=== PATIENT | male | born 1970 | race Two or more races ===

== ENCOUNTER 2024-01-22 23:54 | Emergency (ER) | payer MEDICAID, SELFPAY ==
[2024-01-22 23:55] VITALS: BP 136/82; PULSE 84; RESP 15; TEMP 37.1; O2SAT 99
[2024-01-23] VITALS: BMI 23.3
--- NOTE | 2024-01-23 | EDNOTE_ITS ---
ED General RME/HPI General Chief complaint: General Adult/Misc Complain Stated complaint: PULLED OUT NEPHROSTOMY TUBE Time Seen by Provider: 01/22/24 23:59 Arrival date/time: 01/22/24 23:54 Limitations: no limitations RME / HPI RME / HPI narrative: Dr. Richards's ED Evaluation: 53-year-old [facility] with a history of nonverbal, chronic pain syndrome, quadriplegia, schizoaffective disorder, bilateral nephrostomy tubes, and other medical problems, full code, coming in because his left nephrostomy tube came out. The long-term reports after the charge nurse called to state that the patient has a right nephrostomy tube and is draining well. Otherwise he is not having fevers, and is not vomiting. No other complaints per the long-term. Review of Systems Review of Systems Systems Reviewed: All systems reviewed, normal except as documented ED Exam General Limitations: Present no limitations General appearance: Present alert and in no apparent distress Head Head exam: Present atraumatic Eye Eye exam: Present normal appearance; Absent scleral icterus ENT ENT exam: Present normal exam, normal oropharynx and mucous membranes moist Neck Neck exam: Present normal inspection and trachea midline Chest Chest inspection: Present normal inspection and symmetric chest wall rise Respiratory Respiratory exam: Present normal lung sounds bilaterally Cardiovascular Cardiovascular exam: Present regular rate, normal rhythm and normal heart sounds Abdominal Exam Abdominal exam: Present soft and other (G-tube is in place on the left abdomen.) Extremities Exam Extremities exam: Present normal inspection and full ROM Back Exam Back exam: Present normal inspection, full ROM and other (Left nephrostomy tube was no longer present. No discharge is noted. No erythema. The right nephrostomy tube is present and draining yellow discharge.) Neurological Exam Neurological exam: Present alert, oriented X3 and CN II-XII intact Psychiatric Psychiatric exam: Present normal affect and normal mood Skin Skin exam: Present warm, dry, intact and normal color Course Course Course Narrative: Patient examined. He is in no acute distress. Quality Measures none Vital Signs Vital signs: Vital Signs Temperature 98.8 F 01/22/24 23:55 Pulse Rate 84 01/22/24 23:55 Respiratory Rate 15 01/22/24 23:55 Blood Pressure 136/82 H 01/22/24 23:55 Pulse Oximetry (%) 99 01/22/24 23:55 Oxygen Delivery Method Room Air 01/22/24 23:55 MDM Patient data External records reviewed:: [facility] previous records (Per chart review, patient has no previous ED visits or admissions to this facility.) and [facility] records (Per [facility] records, patient has a history of quadriplegia, anxiety, schizoaffective disorder, GERD, TIA, dysphagia, and depression) Clinical information provided by:: patient Social determinants that could affect healthcare access:: housing (Pt resides in a SNF.) Patient has the following chronic illnesses:: Nursing records are reviewed. How is presenting disease/condition affected by chronic disease/condition?: no chronic disease Evaluation data The following diagnostics were reviewed and interpreted by me:: other (specify) (No studies indicated.) Lab and/or radiology exams considered but not ordered:: none Interpretation Summary: none Medications Medications considered but not ordered:: none Medication administrations:: none Consultations Consultation(s) initiated? (list below): No Diagnosis Differential Diagnosis ED Complaint MDM: tube malfunction, foreign body in tube, other malfunction with drain Most likely diagnosis given after review of the tests above:: as below Admission Indicated Admission indicated?: not indicated Explain why admission is indicated or not indicated:: Admission was not indicated due to the SNF endorsing the patient's nephrostomy tube is draining Admission Request Was there a request for admission?: No Disposition Plan Disposition Plan: Discharge Discharge Attestation Discharge Attestation: The patient and all family members were given an opportunity to ask questions and understood the discharge instructions. Discharge instructions specifically effects, indications for sooner follow up or return to the emergency department, and the expected course of current diagnosis. Patient condition: Stable Medical Decision Making MDM Narrative MDM Narrative: Differential diagnosis includes dislodgment of his left nephrostomy tube, discharge, cellulitis No previous records in his computer however it shows that the patient has had bilateral nephrostomy tubes placed by her urologist. The patient has a working right nephrostomy tube at this time with clear urine. There is no evidence of infection on the left side of his abdomen or back. At this time the patient is stable. He already has a right nephrostomy tube. I think that the patient can follow-up by phone with the urologist tomorrow to find out if they need to replace the left one. Otherwise return to the emergency department for fevers, worsening symptoms, or any other concerns. Differential Diagnosis Differential Diagnosis: tube malfunction, foreign body in tube, other malfunction with drain Discharge Plan Plan Patient Disposition: HOME (Self Care) Patient condition on transfer: Stable Problem List Clinical Impression: Displacement of nephrostomy tube Patient/Caregiver Discharge Instructions Additional Instructions: Please call Dr. Shelton's office in the morning to find out if he needs the replacement of his left nephrostomy tube. The patient already has a right nephrostomy tube that is working and in place. Please return to the emergency department if the patient is having a fever, the right nephrostomy tube is not working, or you have any other concerns. Print Language: South Korean Stand Alone Forms: Karine Award Info., Patient Portal Info Letter
== END 2024-01-23 00:41 | disposition skilled nursing facility (03) ==
LOC: SERX 01-23 06:13
PROVIDERS: Emergency Provider Emergency Medicine; PCP Family Medicine
DX: T83.022A Displacement of nephrostomy catheter, initial encounter (principal); G82.50 Quadriplegia, unspecified; Y73.2 Prosthetic and other implants, materials and accessory gastroenterology and urology devices associated with adverse incidents; Y84.6 Urinary catheterization as the cause of abnormal reaction of the patient, or of later complication, without mention of misadventure at the time of the procedure
CPT/HCPCS: 99283

== ENCOUNTER 2024-07-15 17:26 | Emergency (ER) | payer MEDICAID, SELFPAY ==
[2024-07-15 17:29] VITALS: BP 119/84; PULSE 71; RESP 20; TEMP 36.3; O2SAT 97
[2024-07-15 18:11] VITALS: PULSE 71; RESP 20; O2SAT 97
[2024-07-15 18:27] VITALS: BMI 21.9
--- NOTE | 2024-07-15 19:04 | EDNOTE_ITS ---
ED Abdominal Pain RME/HPI General Chief Complaint: General Adult/Misc Complain Stated complaint: G TUBE REPLACELMENT Time seen by provider: 07/15/24 17:58 Arrival date/time: 07/15/24 17:26 RME / HPI RME / HPI narrative: This section includes all my notes and documentations, including HPI, PE, and ED course. Major Doherty MD HPI: 53-year-old male here to be evaluated with his feeding tube malfunction from his [facility]. No other complaints. ROS: All negative except as documented in HPI. Physical Exam: General: Alert. No acute distress when remaining still. Eyes: Conjunctivae and lids clear. ENT: No nasal congestion. Neck: Supple. Heart: RRR. Lungs: No respiratory distress. Good air movement. No rhonchi, wheezing, rales. Abdomen: Soft with equivocal diffuse tenderness and distention. Normal bowel sounds. No rebound or guarding. Back: No CVA tenderness. Skin: Warm and dry. I reviewed all diagnostic test results. My review of the abdominal CT report is no acute findings, except his chronic left ureteral stone. Blood tests and urine tests unremarkable except UTI. Feeding tube working properly. At this point, diagnoses include UTI. Treatment here included Zofran and morphine and Rocephin. Significant improvement noted. Will return to [facility]. Discharge Instructions from Dr. Doherty printed for you: 1. After extensive evaluation, including abdominal CT scan, the feeding tube is working. Mr. Alex has UTI and his chronic left ureteral stone. 2. Cefdinir for the UTI. For good hydration, increase oral fluid and maintain clear urine. If dark or yellow, increase oral fluid. 3. Check final urine culture results on 07/19/2024. 4. Seek immediate medical care with worsening or with any concerns. Major Doherty MD Related Data Home Medications ?Medication ?Instructions ?Recorded ?Confirmed acetaminophen 325 mg/10.15 mL oral 3 mg feeding tube TID 08/23/23 08/23/23 solution baclofen 10 mg tablet 10 mg PO BID 08/23/23 08/23/23 buspirone 10 mg tablet 10 mg PO BID 08/23/23 08/23/23 cholecalciferol (vitamin D3) 25 25 mcg PO QDAY 08/23/23 08/23/23 mcg (1,000 unit) capsule docusate sodium 100 mg capsule 100 mg PO QDAY 08/23/23 08/23/23 famotidine 20 mg tablet (Pepcid) 20 mg PO QDAY 08/23/23 08/23/23 fluoxetine 20 mg tablet 20 mg feeding tube QDAY 08/23/23 08/23/23 levetiracetam 100 mg/mL oral 500 mg feeding tube BID seizures 08/23/23 08/23/23 solution magnesium hydroxide 400 mg/5 mL 5 ml PO QDAY PRN Constipation 08/23/23 08/23/23 oral suspension (Milk of Magnesia) melatonin 1 mg tablet 1 mg PO HS PRN crsd 08/23/23 08/23/23 methocarbamol 500 mg tablet 500 mg PO TID 08/23/23 08/23/23 multivitamin 1 tab PO QAM 08/23/23 08/23/23 polyethylene glycol 3350 17 gram 17 g PO QDAY 08/23/23 08/23/23 oral powder packet (Miralax) quetiapine 50 mg tablet (Seroquel) 50 mg PO BID 08/23/23 08/23/23 sennosides 8.6 mg capsule (senna) 8.6 mg PO QDAY 08/23/23 08/23/23 Previous Rx's ?Medication ?Instructions ?Recorded gabapentin 300 mg capsule 600 mg (2 x 300 mg) G-tube TID #30 08/23/23 caps melatonin 3 mg tablet 3 mg PO HS #30 tabs 08/23/23 sulfamethoxazole 800 1 tab PO BID #20 tabs 05/27/24 mg-trimethoprim 160 mg tablet (Bactrim DS) cefdinir 300 mg capsule 300 mg PO BID #14 caps 07/15/24 Allergies Allergy/AdvReac Type Severity Reaction Status Date / Time No Known Allergies Allergy Verified 02/05/24 06:14 Course Quality Measures none Orders Category Date Time Status CT Screening NOW Care 07/15/24 19:05 Active Saline [Insert IV] NOW Care 07/15/24 19:05 Active Straight [In and Out Catheter] X1 Care 07/15/24 19:[address] abdomen pelvis w con Stat Exams 07/15/24 19:05 Completed Amylase Stat Lab 07/15/24 19:27 Completed CBC Stat Lab 07/15/24 19:27 Completed CMP [Comprehensive Metabolic Panel] Stat Lab 07/15/24 19:27 Completed Lipase Stat Lab 07/15/24 19:27 Completed Magnesium Stat Lab 07/15/24 19:27 Completed UA, C/S IF [Urinalysis, C/S if Indicated] Stat Lab 07/15/24 19:34 Completed Urine Culture Stat Lab 07/15/24 19:34 Received Morphine Inj Med 07/15/24 19:05 Discontinued 5 mg IVP X1 ONE Ondansetron Inj [Zofran Inj] Med 07/15/24 19:05 Discontinued 4 mg IV X1 ONE cefTRIAXone/D5w 1gm IV premix [Rocephin/D5w 1gm IV Med 07/15/24 19:53 Discontinued premix] 50 ml IV X1 Vital Signs Vital signs: Vital Signs Temperature 97.4 F 07/15/24 17:29 Pulse Rate 71 07/15/24 17:29 Respiratory Rate 20 07/15/24 17:29 Blood Pressure 119/84 07/15/24 17:29 Pulse Oximetry (%) 97 07/15/24 17:29 Oxygen Delivery Method Room Air 07/15/24 17:29 Abdominal Pain MDM Patient data External records reviewed:: [facility] previous records, EMS form and [facility] records Clinical information provided by:: patient and EMS Social determinants that could affect healthcare access:: none Patient has the following chronic illnesses:: See chart How is presenting disease/condition affected by chronic disease/condition?: exacerbated by Evaluation data The following diagnostics were reviewed and interpreted by me:: lab results and radiology exam(s) Lab and/or radiology exams considered but not ordered:: None Interpretation Summary: UTI Medications / Prescriptions Medications or Prescriptions considered but not ordered:: None Medication administrations:: Medication Administration History Discontinued Medications Ceftriaxone Sodium/Dextrose (Rocephin/D5w 1gm Iv Premix) 50 mls @ 100 mls/hr IV X1 ONE Stop: 07/15/24 20:22 Last Infusion: 07/15/24 21:35 Dose: Infused Documented By: Admin: 07/15/24 19:58 Dose: 100 mls/hr Documented By: LENNY Morphine Sulfate (Morphine Sulf Inj 10 Mg/Ml Vial) 5 mg IVP X1 ONE Stop: 07/15/24 19:06 Last Admin: 07/15/24 19:58 Dose: 5 mg Documented By: LENNY Ondansetron HCl (Ondansetron Inj 2 Mg/Ml Inj 2 Ml) 4 mg IV X1 ONE; Protocol Stop: 07/15/24 19:06 Last Admin: 07/15/24 19:58 Dose: 4 mg Documented By: LENNY Zofran and morphine and Rocephin Consultations Consultation(s) initiated? (list below): No Diagnosis Differential diagnosis abdominal pain: acute appendicitis, calculus of kidney, constipation, diverticulitis, pancreatitis and small bowel obstruction Most likely diagnosis given after review of the tests above:: UTI Admission Indicated Admission indicated?: not indicated Explain why admission is indicated or not indicated:: Admission criteria not met Admission Request Was there a request for admission?: No Disposition Plan Disposition Plan: Discharge Discharge Attestation Discharge Attestation: The patient and all family members were given an opportunity to ask questions and understood the discharge instructions. Discharge instructions specifically effects, indications for sooner follow up or return to the emergency department, and the expected course of current diagnosis. Patient condition: Stable Discharge Plan Plan Patient Disposition: Xfer Skilled Nsg Fac (SNF) Prescriptions/Referrals Prescriptions/Med Rec: New cefdinir 300 mg capsule 300 mg PO BID Qty: 14 0RF No Action multivitamin Tablet 1 tab PO QAM famotidine [Pepcid] 20 mg Tablet 20 mg PO QDAY fluoxetine 20 mg Tablet 20 mg feeding tube QDAY senna 8.6 mg Capsule 8.6 mg PO QDAY quetiapine [Seroquel] 50 mg Tablet 50 mg PO BID methocarbamol 500 mg Tablet 500 mg PO TID polyethylene glycol 3350 [Miralax] 17 gram Powder In Packet 17 g PO QDAY magnesium hydroxide [Milk of Magnesia] 400 mg/5 mL Suspension 5 ml PO QDAY PRN (Reason: Constipation) baclofen 10 mg Tablet 10 mg PO BID buspirone 10 mg Tablet 10 mg PO BID docusate sodium 100 mg Capsule 100 mg PO QDAY cholecalciferol (vitamin D3) 25 mcg (1,000 unit) Capsule 25 mcg PO QDAY levetiracetam 100 mg/mL Solution 500 mg feeding tube BID melatonin 1 mg Tablet 1 mg PO HS PRN (Reason: crsd) acetaminophen 325 mg/10.15 mL Solution 3 mg feeding tube TID gabapentin 300 mg Capsule 600 mg G-tube TID Qty: 30 0RF melatonin 3 mg Tablet 3 mg PO HS Qty: 30 0RF sulfamethoxazole-trimethoprim [Bactrim DS] 800-160 mg tablet 1 tab PO BID Qty: 20 0RF Referrals: No Primary/Family,Physician [Primary Care Provider] - In 1 week Problem List Clinical Impression: UTI (urinary tract infection) Patient/Caregiver Discharge Instructions Discharge Activity: resume usual activities Education Materials: ED Bladder Infection, Male (Adult) Additional Instructions: Discharge Instructions from Dr. Doherty printed for you: 1. After extensive evaluation, including abdominal CT scan, the feeding tube is working. Mr. Alex has UTI and his chronic left ureteral stone. 2. Cefdinir for the UTI. For good hydration, increase oral fluid and maintain clear urine. If dark or yellow, increase oral fluid. 3. Check final urine culture results on 07/19/2024. 4. Seek immediate medical care with worsening or with any concerns. Print Language: Wolof Stand Alone Forms: Karine Award Info., Patient Portal Info Letter
--- NOTE | 2024-07-15 19:05 | XR_ITS ---
Examination: CT abdomen with intravenous contrast CT pelvis with intravenous contrast 2-D coronal reconstructions 2-D sagittal reconstructions Date and time of exam:July 15, 2024 2042 hrs. Indications: Gastrostomy tube bowel function today with severe abdominal pain Comparison: May 26, 2024. CTDI: vol (mGy) 8.06 DLP: (mGycm) 501 Technique: Multiple axial sections of the abdomen and pelvis have been obtained. 64 slice high-resolution scanner used. 3 mm axial sections have been obtained, post intravenous injection 60 cc [id number] 2-D sagittal, coronal reconstructions obtained. Low dose protocols were performed. One or more of the following dose reduction techniques were used; automated exposure control, adjustment of the mA and/or KV according to patient size, use of iterative reconstruction technique. Findings: No focal liver lesions No gallstones Spleen not enlarged Feeding tube in the stomach, the tube extends into the duodenum and jejunal small bowel loops 12 mm lower pole staghorn calculus Left ureteral stent satisfactory position with 15 mm proximal left ureteral calculus Minimal left hydronephrosis Wall thickening involving the right pelvicalyceal system suspicious for urinary tract infection No ureteral calculi or significant hydronephrosis No bowel obstruction Abundant stool in the rectosigmoid Urinary bladder wall is thickened up to 15 mm Impression: Left ureteral stent satisfactory position with 15 mm proximal left ureteral calculus Feeding tube projects tip in the jejunal small bowel Wall thickening involving the right pelvicalyceal system suspicious for right urinary tract infection Cystitis pattern
[2024-07-15 19:39] LABS: Collection Type, Urine Clean Catch
[2024-07-15 19:45] LABS: Basophils % (Auto) 0 % (0-2.5); Eosinophils # (Auto) 0.2 Thou/mm3 (0.0-0.5); Eosinophils % (Auto) 2 % (0-10); Hematocrit 43.3 % (41.0-53.0); Hemoglobin 14.4 g/dL (13.5-16.0); Immature Granulocytes % (Auto) 0 % (0-0); Immature Granulocytes Auto 0.03 Thou/mm3 (0.00-0.00); Lymphocytes % (Auto) 17 % (10-50); Mean Corpuscular HGB Conc 33.3 g/dl (31.0-37.0); Mean Corpuscular Volume 93 fL (80-100); Monocytes % (Auto) 8 % (0-12); Neutrophils # (Auto) 8.8 Thou/mm3 (1.8-7.7); Neutrophils % (Auto) 73 % (37-80); Nucleated Red Blood Cell % 0 /100 WBC (0); Platelet Count 368 Thou/mm3 (140-440); RDW Standard Deviation 52.3 fL (35.1-43.9); Red Blood Count 4.64 Miln/mm3 (4.50-5.90)
[2024-07-15 19:47] LABS: Bacteria,Urine 1+; Bilirubin,Urine Negative (Negative); Blood,Urine 2+ (Negative); Color,Urine Yellow (Lt Yel-Yel); Glucose, Urine Negative (Negative); Ketones,Urine Negative (Negative); Leukocyte Esterase,Urine Positive (Negative); Nitrite,Urine Positive (Negative); Protein,Urine 1+ (Neg - Trace); RBC,Urine 124 /hpf (0-3); Specific Gravity,Urine 1.023 (1.001-1.035); Squamous Epithelial Cell,Urine 1 /hpf (0-5); Urobilinogen,Urine Negative mg/dL (0.0-1.0); WBC,Urine 813 /hpf (0-5)
[2024-07-15 19:51] LABS: Clarity,Urine Turbid (Clear/Hazy); Culture Indicated,Urine Yes
[2024-07-15] MEDS: MORPHINE SULF INJ 10 MG/ML VIAL 5 MG IVP (19:58)
[2024-07-15] MEDS: cefTRIAXone/D5w 1gm IV premix 50 ML IV (19:58)
[2024-07-15] MEDS: ONDANSETRON INJ 2 MG/ML INJ 2 ML 4 MG IV (19:58)
--- NOTE | 2024-07-15 20:01 | PC.NURSE ---
Pt repositioned to his right side
[2024-07-15 20:09] VITALS: BP 136/85; PULSE 82; RESP 18; TEMP 36.8; O2SAT 97
[2024-07-15 20:22] LABS: Alanine Aminotransferase 15 U/L (10-49); Albumin, Serum 4.6 gm/dL (3.5-5.0); Albumin/Globulin Ratio 1.3 (1.2-2.2); Alkaline Phosphatase 101 U/L (46-116); Amylase 110 U/L (30-118); Anion Gap 6 (7-16); Aspartate Amino Transferase 15 U/L (0-34); BUN/Creatinine Ratio 18 Ratio (12-20); Bilirubin,Total 0.2 mg/dL (0.3-1.2); Blood Urea Nitrogen 14 mg/dL (9-23); Calcium 9.9 mg/dL (8.3-10.6); Calcium (Corrected) 9.9 mg/dL (8.5-10.1); Carbon Dioxide 30.2 mMol/L (20.0-31.0); Chloride 103 mMol/L (98-107); Creatinine (Component) 0.8 mg/dL (0.6-1.3); Estimated Creatinine Clearance 93.7 mL/min (>60); Globulin 3.6 gm/dL (2.3-3.5); Glucose 99 mg/dL (74-106); Lipase 116 U/L (12-53); Magnesium 2.4 mg/dL (1.6-2.6); Osmolality,Calculated 278 (275-295); Potassium 4.3 mMol/L (3.4-5.1); Sodium 139 mMol/L (136-145); Total Protein 8.2 gm/dL (5.7-8.2); eGFR > 60 See Note
--- NOTE | 2024-07-15 21:42 | PC.NURSE ---
PT LAYING ON HIS BACK
[2024-07-15 23:01] VITALS: BP 113/76; PULSE 69; RESP 18; TEMP 36.7; O2SAT 96
--- NOTE | 2024-07-15 23:25 | PC.NURSE ---
Report given to Deneen JARRETT and [facility]
== END 2024-07-15 23:42 | disposition skilled nursing facility (03) ==
PROVIDERS: Emergency Provider Emergency Medicine
DX: N39.0 Urinary tract infection, site not specified (principal); Z43.1 Encounter for attention to gastrostomy
CPT/HCPCS: 51701; 36415; 74177; 80053; 81001; 82150; 83690; 83735; 85025; 87077; 87086; 87186; 96365; 96366; 99285; A4649; J0696; J2270; J2405; Q9967